=== PATIENT | male | born 1990 | race Caucasian/White ===

== ENCOUNTER 2016-08-27 13:26 | Emergency (ER) | payer MEDICAID ==
[2016-08-27] MEDS ORDERED: KETOROLAC 30 MG/ML VIAL ONE (13:57)
== END 2016-08-27 15:21 | disposition home or self-care (01) ==
LOC: FASTR 13:26
CPT/HCPCS: 36415; 80053; 80185; 84439; 84443; 84550; 85025; 85652; 96374